=== PATIENT | female | born 1990 | race Hispanic/Latino ===

== ENCOUNTER → 2018-10-08 | Outpatient (CLI) | payer OTHER ==
--- NOTE | 2018-10-09 08:49 | Diagnostic Imaging Report ---
#[id number] - [facility] ULTRASOUND OF THE LEFT BREAST : 10/08/2018 No prior exams were available for comparison. Real-time ultrasound was performed on the left breast. Scattered benign subcentimeter cysts are noted. There are no solid masses identified. IMPRESSION: BENIGN There is no sonographic evidence of malignancy. JANAK BROCK M.D. ct/penrad:10/08/2018 11:08:48 [employer] Installer: Jerrell Ochoa [facility], [facility] letter sent: Normal Exam Ultrasound BI-RADS: 2 Benign
--- NOTE | 2018-10-09 08:49 | Diagnostic Imaging Report ---
#[id number] - [facility] ULTRASOUND OF THE RIGHT BREAST : 10/08/2018 No prior exams were available for comparison. Real-time ultrasound was performed on the right breast. Scattered benign subcentimeter cysts are noted. There are no solid masses identified. IMPRESSION: BENIGN There is no sonographic evidence of malignancy. JANAK BROCK M.D. 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
== END ==
LOC: US 07:46
PROVIDERS: ATTEND Internal Medicine
DX: N60.12 Diffuse cystic mastopathy of left breast (principal)